=== PATIENT | male | born 1945 | race Hispanic/Latino ===

== ENCOUNTER 2023-05-31 15:01 | Inpatient (IN) | payer MEDICARE ==
[2023-05-31] MEDS ORDERED: cefTRIAXone (ROCEPHIN) 2 GM VIAL ONE (16:28)
[2023-05-31 16:54] LABS: #Basophils 0.1 10x3/uL (0.0-0.2); #Eosinphils 0.2 10x3/uL (0.0-0.5); #Monocytes 0.8 10x3/uL (0.0-1.1); #Neutrophils 5.7 10x3/uL (1.5-8.4); %Basophils 0.8 % (0.0-2.0); %Eosinophils 2.4 % (0.0-6.0); %Lymphocytes 11.2 % (18.0-47.0); %Monocytes 10.6 % (0.0-10.0); %Neutrophils 74.5 % (40.0-75.0); Hematocrit 39.6 % (38.8-50.0); Hemoglobin 12.9 g/dL (13.5-17.5); Mean Corpuscular HGB CONC 32.6 g/dL (32.0-36.0); Mean Corpuscular Hemoglobin 28.9 pg (27.0-33.0); Mean Corpuscular Volume 88.6 fl (81.2-95.1); Mean Platelet Volume 12.8 fl (7.4-10.4); Platelet Count 85 10x3/uL (150-450); RBC Distribution Width 15.1 % (11.5-14.5); Red Blood Cell (RBC) Count 4.47 10x6/uL (4.32-5.72); White Blood Cell (WBC) Count 7.7 10x3/uL (3.5-10.5)
[2023-05-31 16:58] LABS: ALT (SGPT) 17 U/L (8-55); AST (SGOT) 16 U/L (5-34); Alkaline Phosphatase 165 U/L (40-110); Anion Gap 13 mmol/L (10-20); BUN (Urea Nitrogen) 22 mg/dL (8.4-25.7); Bilirubin, Total 0.7 mg/dL (0.2-1.2); Calc. Creatinine Clearance 0 mL/min (70-130); Calcium 9.3 mg/dL (7.8-10.44); Carbon Dioxide 26 mmol/L (23-31); Chloride 102 mmol/L (98-107); Estimated GFR 90; Globulin 2.7 g/dL (2.4-3.5); Glucose 273 mg/dL (83-110); Potassium 4.4 mmol/L (3.5-5.1); Protein, Total 6.7 g/dL (5.8-8.1); Sodium 137 mmol/L (136-145)
[2023-05-31] MEDS ORDERED: Dextrose 5% in Water 1,000 ML IV PRN (19:54)
[2023-05-31] MEDS ORDERED: Dextrose 50% Abboject 50 ML SYRINGE SLOW IVP PRN (19:54)
[2023-05-31] MEDS ORDERED: Glucagon 1 MG/ML KIT IM PRN (19:54)
[2023-05-31 20:44] LABS: Magnesium 1.7 mg/dL (1.6-2.6)
[2023-05-31] MEDS ORDERED: Enoxaparin 40 MG (0.4 mL) SYRINGE ONE (21:59)
[2023-05-31] MEDS: Sodium Chloride 0.9% 1,000 ML IV SCH (22:06)
[2023-05-31] MEDS: Enoxaparin 40 MG (0.4 mL) SYRINGE SC SCH (22:06)
[2023-05-31] MEDS ORDERED: Atorvastatin Calcium 40 MG TAB ONE (22:23)
[2023-05-31] MEDS: Atorvastatin Calcium 40 MG TAB PO SCH (22:26)
[2023-06-01] MEDS: Artificial Tear Sol 15 ML BOT EA EYE PRN
[2023-06-01] MEDS ORDERED: Metoprolol Tartrate 25 MG TAB ONE (04:28)
[2023-06-01 04:29] LABS: #Basophils 0.1 10x3/uL (0.0-0.2); #Eosinphils 0.2 10x3/uL (0.0-0.5); #Monocytes 0.8 10x3/uL (0.0-1.1); #Neutrophils 4.6 10x3/uL (1.5-8.4); %Basophils 0.8 % (0.0-2.0); %Eosinophils 3.5 % (0.0-6.0); %Lymphocytes 14.1 % (18.0-47.0); %Monocytes 11.4 % (0.0-10.0); %Neutrophils 69.7 % (40.0-75.0); Hematocrit 36.1 % (38.8-50.0); Hemoglobin 11.8 g/dL (13.5-17.5); Mean Corpuscular HGB CONC 32.7 g/dL (32.0-36.0); Mean Corpuscular Hemoglobin 28.7 pg (27.0-33.0); Mean Corpuscular Volume 87.8 fl (81.2-95.1); Platelet Count 76 10x3/uL (150-450); RBC Distribution Width 15.1 % (11.5-14.5); Red Blood Cell (RBC) Count 4.11 10x6/uL (4.32-5.72); White Blood Cell (WBC) Count 6.6 10x3/uL (3.5-10.5)
[2023-06-01 04:47] LABS: Anion Gap 13 mmol/L (10-20); BUN (Urea Nitrogen) 15 mg/dL (8.4-25.7); Calc. Creatinine Clearance 0 mL/min (70-130); Calcium 8.6 mg/dL (7.8-10.44); Carbon Dioxide 23 mmol/L (23-31); Chloride 105 mmol/L (98-107); Estimated GFR 94; Glucose 250 mg/dL (83-110); Potassium 4.1 mmol/L (3.5-5.1); Sodium 137 mmol/L (136-145)
[2023-06-01 04:48] LABS: Large Platelets SLIGHT (None Seen); Platelet Adequacy Comment Appears Decreased; RBC Morph Comment Within Normal Limits
[2023-06-01] MEDS ORDERED: Magnesium 2 GM/50 ML BAG (IN WATER) ONE (08:10)
[2023-06-01] MEDS ORDERED: Losartan 25 MG TAB ONE (08:11)
[2023-06-01] MEDS: Magnesium 2 GM/50 ML(in water) 2 GM in Premix 1 BAG IVPB SCH (08:26)
[2023-06-01] MEDS: Losartan 25 MG TAB PO SCH (08:27)
[2023-06-01] MEDS ORDERED: Bupivacaine PF 0.5% 30 ML VIAL ONE (15:05)
[2023-06-01] MEDS ORDERED: PROPOFOL 20 ML ONE (15:22)
[2023-06-01] MEDS ORDERED: Gentamicin 80 MG/2 ML VIAL ONE (15:34)
[2023-06-01] MEDS ORDERED: Glycopyrrolate 0.2 MG/ML 5 ML SYRINGE ONE (15:55)
[2023-06-01] MEDS ORDERED: CEFAZOLIN 1 GM VIAL ONE (16:09)
[2023-06-02 06:05] LABS: Anion Gap 12 mmol/L (10-20); BUN (Urea Nitrogen) 12 mg/dL (8.4-25.7); Calc. Creatinine Clearance 77 mL/min (70-130); Calcium 8.7 mg/dL (7.8-10.44); Carbon Dioxide 26 mmol/L (23-31); Cardiac Risk 2.8 (Less than 4.5); Chloride 104 mmol/L (98-107); Cholesterol 89 mg/dl (< 200 Desired); Estimated GFR 92; Glucose 194 mg/dL (83-110); HDL Cholesterol 32 mg/dL (>60 Neg Risk); LDL Cholesterol, Calculated 43 mg/dL; Magnesium 1.5 mg/dL (1.6-2.6); Sodium 138 mmol/L (136-145); Triglycerides 72 mg/dL (Less than 150)
[2023-06-02 06:14] LABS: #Basophils 0.1 10x3/uL (0.0-0.2); #Eosinphils 0.2 10x3/uL (0.0-0.5); #Monocytes 0.6 10x3/uL (0.0-1.1); #Neutrophils 4.5 10x3/uL (1.5-8.4); %Eosinophils 3.7 % (0.0-6.0); %Lymphocytes 13.5 % (18.0-47.0); %Monocytes 9.7 % (0.0-10.0); %Neutrophils 71.8 % (40.0-75.0); Hematocrit 35.2 % (38.8-50.0); Hemoglobin 11.6 g/dL (13.5-17.5); Mean Corpuscular Hemoglobin 29.1 pg (27.0-33.0); Mean Corpuscular Volume 88.2 fl (81.2-95.1); Mean Platelet Volume 12.5 fl (7.4-10.4); Platelet Count 68 10x3/uL (150-450); RBC Distribution Width 14.8 % (11.5-14.5); Red Blood Cell (RBC) Count 3.99 10x6/uL (4.32-5.72); White Blood Cell (WBC) Count 6.3 10x3/uL (3.5-10.5)
[2023-06-02] MEDS: Aspirin 81 mg Enteric Coated Tablet PO SCH (08:54)
[2023-06-02] MEDS: HumaLOG 300 UNITS/3 ML VIAL SC PRN (11:12)
[2023-06-02] MEDS: Cefepime 2 GM in Sodium Chloride 0.9% 100 ML IVPB SCH ×2 (11:13→20:16)
[2023-06-02] MEDS: Vancomycin 1.5 GRAM/300 ML BAG 1.5 GM in Premix 1 BAG IVPB SCH (11:13)
[2023-06-02 11:37] LABS: Hemoglobin A1c 8.9 % (4.0-6.0)
[2023-06-02] MEDS ORDERED: Milk Of Magnesia 30 ML UDCUP PO PRN (12:55)
[2023-06-02] MEDS: Polyethylene Glycol 3350 17 GM Packet PO SCH (13:26)
[2023-06-02] MEDS: Senokot S 8.6-50 MG TAB PO SCH (20:17)
[2023-06-02] MEDS: Atorvastatin Calcium 40 MG TAB PO SCH (20:17)
[2023-06-02] MEDS: Polyvinyl Alcohol 1.4%/Povidone 0.6% Opth Drops EA EYE PRN (20:18)
[2023-06-02] MEDS ORDERED: Vancomycin 1 GM in Premix 1 BAG IVPB SCH (21:00)
[2023-06-02] MEDS: Vancomycin 1 GM in Sodium Chloride 0.9% 250 ML 250 ML IVPB SCH (22:32)
[2023-06-03 06:01] LABS: Anion Gap 11 mmol/L (10-20); BUN (Urea Nitrogen) 15 mg/dL (8.4-25.7); Calc. Creatinine Clearance 84 mL/min (70-130); Carbon Dioxide 24 mmol/L (23-31); Chloride 107 mmol/L (98-107); Potassium 3.8 mmol/L (3.5-5.1); Sodium 138 mmol/L (136-145)
[2023-06-03 06:02] LABS: Calcium 8.4 mg/dL (7.8-10.44); Estimated GFR 94; Glucose 138 mg/dL (83-110); Magnesium 1.4 mg/dL (1.6-2.6)
[2023-06-03 06:09] LABS: #Basophils 0.1 10x3/uL (0.0-0.2); #Eosinphils 0.2 10x3/uL (0.0-0.5); #Monocytes 0.7 10x3/uL (0.0-1.1); #Neutrophils 5.2 10x3/uL (1.5-8.4); %Basophils 0.7 % (0.0-2.0); %Eosinophils 3.1 % (0.0-6.0); %Lymphocytes 12.2 % (18.0-47.0); %Monocytes 9.8 % (0.0-10.0); %Neutrophils 73.8 % (40.0-75.0); Hemoglobin 11.9 g/dL (13.5-17.5); Mean Corpuscular HGB CONC 33.1 g/dL (32.0-36.0); Mean Corpuscular Volume 87.8 fl (81.2-95.1); Mean Platelet Volume 12.8 fl (7.4-10.4); Platelet Count 69 10x3/uL (150-450); RBC Distribution Width 14.8 % (11.5-14.5); White Blood Cell (WBC) Count 7.3 10x3/uL (3.5-10.5)
[2023-06-03] MEDS ORDERED: Electrolyte Replacement Protocol 1 EACH FS SCH (07:45)
[2023-06-03] MEDS: Magnesium 2 GM/50 ML(in water) 2 GM in Premix 1 BAG IVPB SCH (08:33)
[2023-06-03] MEDS: Losartan 25 MG TAB PO SCH (08:33)
[2023-06-03] MEDS: Polyethylene Glycol 3350 17 GM Packet PO SCH (08:34)
[2023-06-03] MEDS: Milk Of Magnesia 30 ML UDCUP PO SCH (13:51)
[2023-06-03 22:12] LABS: Vancomycin, Trough 16.9 ug/mL
[2023-06-03] MEDS: Magnesium Citrate 300 ML BOT PO SCH (22:19)
[2023-06-04 06:34] LABS: #Basophils 0.1 10x3/uL (0.0-0.2); #Eosinphils 0.3 10x3/uL (0.0-0.5); #Monocytes 0.8 10x3/uL (0.0-1.1); #Neutrophils 5.3 10x3/uL (1.5-8.4); %Basophils 0.7 % (0.0-2.0); %Eosinophils 3.6 % (0.0-6.0); %Lymphocytes 11.8 % (18.0-47.0); %Monocytes 11.4 % (0.0-10.0); %Neutrophils 72.1 % (40.0-75.0); Hematocrit 34.7 % (38.8-50.0); Hemoglobin 11.7 g/dL (13.5-17.5); Mean Corpuscular HGB CONC 33.7 g/dL (32.0-36.0); Mean Corpuscular Hemoglobin 29.8 pg (27.0-33.0); Mean Corpuscular Volume 88.3 fl (81.2-95.1); Platelet Count 69 10x3/uL (150-450); RBC Distribution Width 14.6 % (11.5-14.5); Red Blood Cell (RBC) Count 3.93 10x6/uL (4.32-5.72); White Blood Cell (WBC) Count 7.3 10x3/uL (3.5-10.5)
[2023-06-04 06:40] LABS: Anion Gap 11 mmol/L (10-20); BUN (Urea Nitrogen) 19 mg/dL (8.4-25.7); Calc. Creatinine Clearance 82 mL/min (70-130); Calcium 8.4 mg/dL (7.8-10.44); Carbon Dioxide 24 mmol/L (23-31); Chloride 107 mmol/L (98-107); Estimated GFR 94; Glucose 142 mg/dL (83-110); Magnesium 1.9 mg/dL (1.6-2.6); Potassium 4.1 mmol/L (3.5-5.1); Sodium 138 mmol/L (136-145)
[2023-06-04] MEDS: Magnesium 2 GM/50 ML(in water) 2 GM in Premix 1 BAG IVPB SCH (09:24)
[2023-06-05 04:35] LABS: #Basophils 0.1 10x3/uL (0.0-0.2); #Eosinphils 0.3 10x3/uL (0.0-0.5); #Monocytes 0.7 10x3/uL (0.0-1.1); #Neutrophils 5.6 10x3/uL (1.5-8.4); %Basophils 0.7 % (0.0-2.0); %Eosinophils 4.5 % (0.0-6.0); %Lymphocytes 9.1 % (18.0-47.0); %Monocytes 9.3 % (0.0-10.0); %Neutrophils 76.3 % (40.0-75.0); Hematocrit 35.3 % (38.8-50.0); Hemoglobin 11.8 g/dL (13.5-17.5); Mean Corpuscular HGB CONC 33.4 g/dL (32.0-36.0); Mean Corpuscular Hemoglobin 29.1 pg (27.0-33.0); Mean Corpuscular Volume 87.2 fl (81.2-95.1); Mean Platelet Volume 11.8 fl (7.4-10.4); Platelet Count 60 10x3/uL (150-450); RBC Distribution Width 14.6 % (11.5-14.5); Red Blood Cell (RBC) Count 4.05 10x6/uL (4.32-5.72); White Blood Cell (WBC) Count 7.3 10x3/uL (3.5-10.5)
[2023-06-05 04:39] LABS: Anion Gap 11 mmol/L (10-20); BUN (Urea Nitrogen) 15 mg/dL (8.4-25.7); Calc. Creatinine Clearance 81 mL/min (70-130); Calcium 8.3 mg/dL (7.8-10.44); Carbon Dioxide 24 mmol/L (23-31); Chloride 107 mmol/L (98-107); Estimated GFR 93; Glucose 169 mg/dL (83-110); Potassium 4.2 mmol/L (3.5-5.1); Sodium 138 mmol/L (136-145)
[2023-06-05 04:44] LABS: Phosphorus 2.8 mg/dL (2.3-4.7)
[2023-06-05] MEDS: Magnesium 2 GM/50 ML(in water) 2 GM in Premix 1 BAG IVPB SCH (10:21)
[2023-06-05 10:27] LABS: Vancomycin, Trough 20.5 ug/mL
[2023-06-05] MEDS ORDERED: Vancomycin HCl 750 MG in Sodium Chloride 0.9% 250 ML 250 ML IVPB SCH ×2 (11:00→23:00)
[2023-06-05 16:40] VITALS: BP 120/67; TEMP 97.8
[2023-06-05] MEDS ORDERED: metFORMIN 500 MG TAB PO SCH (17:00)
[2023-06-08 13:15] LABS: Fungus Stain Final report (.)
== END 2023-06-05 15:45 | disposition home health service (06) | DRG 617 ==
LOC: CSHERS 15:01 → CSHERHOLD 16:20 → CSHTELE 06-01 15:18
PROVIDERS: ADMIT Internal Medicine; ATTEND Family Medicine
PROC: 0Y6T0Z0 Detachment at Right 3rd Toe, Complete, Open Approach (ICD-10-PCS; principal; 2023-06-01)
DX: E11.69 Type 2 diabetes mellitus with other specified complication (principal); M86.8X7 Other osteomyelitis, ankle and foot; I25.10 Atherosclerotic heart disease of native coronary artery without angina pectoris; E78.5 Hyperlipidemia, unspecified; E11.628 Type 2 diabetes mellitus with other skin complications; E11.40 Type 2 diabetes mellitus with diabetic neuropathy, unspecified; L08.9 Local infection of the skin and subcutaneous tissue, unspecified; E11.65 Type 2 diabetes mellitus with hyperglycemia; I10 Essential (primary) hypertension; F17.210 Nicotine dependence, cigarettes, uncomplicated; Z79.84 Long term (current) use of oral hypoglycemic drugs; Z79.82 Long term (current) use of aspirin; Z79.899 Other long term (current) drug therapy; Z82.49 Family history of ischemic heart disease and other diseases of the circulatory system; Z79.4 Long term (current) use of insulin; Z98.49 Cataract extraction status, unspecified eye; Z98.890 Other specified postprocedural states; Z83.3 Family history of diabetes mellitus; Z95.1 Presence of aortocoronary bypass graft; Z89.421 Acquired absence of other right toe(s)
CPT/HCPCS: 36415; 36416; 80048; 80053; 80061; 80202; 83036; 83605; 83735; 84100; 85025; 86850; 86860; 86870; 86880; 86900; 86901; 86905; 86922; 86970; 86978; 87040; 87070; 87077; 87102; 87116; 87186; 87205; 87206; 93005; 93010; 96374; 97139; J0665; J0690; J0692; J0696; J1580; J1650; J1815; J2704; J3370; J3475; J3490; J7050

== ENCOUNTER 2023-06-11 09:15 | Outpatient (CLI) | payer MEDICARE | END 2023-06-11 09:16 | disposition home or self-care (01) | LOC: CSHWCC 09:15 | PROVIDERS: ATTEND Nurse Practitioner Family | DX: E11.621 Type 2 diabetes mellitus with foot ulcer (principal); L97.515 Non-pressure chronic ulcer of other part of right foot with muscle involvement without evidence of necrosis; I73.9 Peripheral vascular disease, unspecified; I25.10 Atherosclerotic heart disease of native coronary artery without angina pectoris | CPT/HCPCS: 11042; G0463; 99213 ==